=== PATIENT | female | born 1945 ===

== ENCOUNTER 2016-10-13 09:13 | Day surgery (SDC) | payer MEDICARE, MEDICAID ==
[2016-10-09 08:22] VITALS: BMI 29.8
[2016-10-13] MEDS ORDERED: Propofol 10 mg/ml Inj (20 ML) ONE (10:03)
[2016-10-13] MEDS ORDERED: Lidocaine 2% Inj (20ml) ONE (10:07)
[2016-10-13] MEDS ORDERED: Lactated Ringer's 1,000 ML IV SCH (10:49)
[2016-10-13 10:58] VITALS: TEMP 97.6
[2016-10-13 11:07] VITALS: RESP 14
[2016-10-13 11:21] VITALS: PULSE 73
[2016-10-13 12:48] VITALS: BP 126/72; O2SAT 98
== END 2016-10-13 12:40 | disposition home or self-care (01) ==
LOC: ENDO 09:13
PROVIDERS: ATTEND Internal Medicine Gastroenterology
DX: K29.50 Unspecified chronic gastritis without bleeding (principal); D12.2 Benign neoplasm of ascending colon; K57.30 Diverticulosis of large intestine without perforation or abscess without bleeding; K64.8 Other hemorrhoids